=== PATIENT | male | born 1945 | race Caucasian/White ===

== ENCOUNTER 2024-06-13 06:36 | Day surgery (SDC) | payer MEDICARE ==
[2024-06-13] MEDS ORDERED: LACTATED RINGERS 1,000 ML BAG ONE (07:10)
[2024-06-13] MEDS ORDERED: PROPOFOL 10 MG/ML 20 ML VIAL IV ONE (07:25)
[2024-06-13] MEDS ORDERED: LIDOCAINE 1% INJ 10MG/ML (20 ML MDV) ONE (07:25)
[2024-06-13] MEDS ORDERED: hydrALAZINE HCL 20 MG/ML 1 ML VIAL ONE (08:23)
--- NOTE | 2024-06-20 15:55 | PCN ---
PROCEDURE NOTE REQUESTING PHYSICIAN: Dr. Nate Tucker. INDICATIONS FOR PROCEDURE: The patient is an 78-year-old pleasant white male, scheduled for an elective upper endoscopy as well as colonoscopy as a part of evaluation of iron deficiency anemia. PROCEDURES PERFORMED: 1. Esophagogastroduodenoscopy with biopsy. 2. Colonoscopy with snare polypectomy and biopsy. ANESTHESIA: IV sedation per Anesthesia. PREOPERATIVE DIAGNOSES: 1. Iron deficiency anemia. 2. History of gastroesophageal reflux disease. DESCRIPTION OF PROCEDURE: After informed consent was obtained from the patient, he was brought into the endoscopy unit. IV conscious sedation was administered by Anesthesia on a continuous monitoring. Initially, upper endoscopy was done. The Olympus GIF-180 video endoscope was inserted into the mouth, esophagus intubated without any difficulty, and was gradually advanced into the stomach and duodenum and carefully examined. Bulb and the second part of the duodenum appeared normal. Biopsies were done from the duodenum to evaluate for celiac disease. The scope was then withdrawn to the stomach, adequately insufflated with air, and upon careful examination, mucosa of the antrum had mild gastritis, and biopsies for H pylori were done. Body of the stomach appeared normal. On retroflexion, cardia and the fundus appeared normal. Scope was then withdrawn to the esophagus. The GE junction was located at 40 cm from the incisors. It appeared regular with no erythema, erosions, or ulcerations. Rest of the esophagus appeared normal, and the patient tolerated the procedure well. He continued to remain sedated. At this time, a colonoscopy was done. Digital rectal examination was normal. The Olympus CF-180 video colonoscope was the inserted into the rectum, gradually advanced into the cecum. Careful examination was performed as the scope was gradually being withdrawn. The ileocecal valve and appendiceal orifice were visualized and appeared normal. The prep was excellent. Cecum appeared normal. In the ascending colon, there was a 4 mm sessile polyp removed by cold biopsy. Transverse colon and descending colon appeared normal. In the sigmoid colon, there was a 1 cm broad-based polyp removed by snare polypectomy. Scattered sigmoid diverticulosis was seen. The rectum appeared normal. Retroflexion was performed in the rectum. No lesions were noted, and the patient tolerated the procedure well. IMPRESSION: 1. Upper endoscopy revealed. a. Mild antral gastritis. b. No evidence of esophagitis or peptic ulcer disease. 2. Colonoscopy revealed. a. A 4 mm ascending colon polyp, status post cold biopsy. b.A 1 cm flat sigmoid colon polyp, status post snare polypectomy. c. Scattered sigmoid diverticulosis. RECOMMENDATIONS: Findings of this examination were discussed with the patient as well as the family. He was advised to follow up with the biopsy results. If the biopsy reveals adenoma, recommended repeat colonoscopy in 3 years. MMODL / IJN: [id number] /
== END 2024-06-13 08:50 ==
LOC: ORWHC2ENDO 06:36
PROVIDERS: ATTEND Internal Medicine Gastroenterology
DX: D12.2 Benign neoplasm of ascending colon (principal); D12.5 Benign neoplasm of sigmoid colon; D72.820 Lymphocytosis (symptomatic); K21.9 Gastro-esophageal reflux disease without esophagitis; D50.9 Iron deficiency anemia, unspecified; K29.50 Unspecified chronic gastritis without bleeding; K57.30 Diverticulosis of large intestine without perforation or abscess without bleeding
CPT/HCPCS: 43239; 45380; 45385; 88305